=== PATIENT | male | born 1980 ===

== ENCOUNTER 2022-12-10 13:49 | Outpatient (CLI) | payer SELFPAY ==
--- NOTE | ~2022-12-10 | XR_ITS ---
XR lumbar spine 2-3V DATE: 12/10/2022 14:05 INDICATION: Severe low back pain for 3 weeks. No known injury. TECHNIQUE: AP, lateral, coned lateral lumbosacral views COMPARISON: None FINDINGS: Normal alignment of the lumbar spine. No fracture or bone destruction or spondylolisthesis. Minimal degenerative spurring is noted in the lumbar spine. The lumbar pedicles are intact. The sacr oiliac joints appear normal. IMPRESSION: Minimal degenerative spurring Reviewed, dictated and finalized at location B.
== END 2022-12-10 13:50 | disposition home or self-care (01) ==
LOC: CHSIMG 13:50
PROVIDERS: PCP Nurse Practitioner Family; Visit Provider Nurse Practitioner Family
DX: M54.9 Dorsalgia, unspecified (principal); M85.88 Other specified disorders of bone density and structure, other site
CPT/HCPCS: 72100